=== PATIENT | male | born 1990 | race Caucasian/White ===

== ENCOUNTER 2017-05-11 10:04 | Emergency (ER) | payer OTHER, BC ==
--- NOTE | 2017-05-11 10:19 | ER Document Report ---
ED General - General Stated Complaint: RIGHT KNEE INJURY Time Seen by Provider: 05/11/17 10:10 Information source: Patient Notes: 27-year-old male who is doing a please obstacle course today when he was going over a fence and states that his right knee patella "shifted" laterally. He states he was able to "put it back in". He states when he attempted to stand he felt lightheaded and passed out. He denies any headache, neck pain, chest pain, palpitations, and currently is back at baseline. He denies any recent trips or travel, prior calf pain or leg swelling. He denies a history of syncope in the past. - HPI Onset: Just prior to arrival Onset/Duration: Sudden Quality of pain: Achy Severity: Mild Pain Level: 1 Associated symptoms: Other - See above Exacerbated by: Movement, Walking Relieved by: Denies Similar symptoms previously: No Recently seen / treated by doctor: No - Related Data Allergies/Adverse Reactions: No Known Allergies Allergy (Verified 05/11/17 10:34) Past Medical History - General Information source: Patient - Social History Smoking Status: Unknown if Ever Smoked Cigarette use (# per day): No Chew tobacco use (# tins/day): No Smoking Education Provided: No Frequency of alcohol use: None Family History: Reviewed & Not Pertinent Review of Systems - Review of Systems Cardiovascular: denies: Chest pain, Palpitations, Heart racing, Edema Respiratory: denies: Cough, Hurts to breathe, Short of breath Gastrointestinal: denies: Abdominal pain Musculoskeletal: denies: Back pain Skin: denies: Rash Hematologic/Lymphatic: denies: Anemia Neurological/Psychological: denies: Confusion, Loss of power -: Yes All other systems reviewed and negative Physical Exam - Vital signs Vitals: Temp Pulse Resp BP Pulse Ox 98.8 F 78 16 132/67 H 97 05/11/17 10:05 05/11/17 10:05 05/11/17 10:05 05/11/17 10:05 05/11/17 10:05 Notes: Reviewed vital signs and nursing note as charted by RN. CONSTITUTIONAL: Alert and oriented and responds appropriately to questions. Well -appearing; well-nourished HEAD: Normocephalic; atraumatic EYES: PERRL NECK: Supple without meningismus; non-tender CARD: Regular rate and rhythm; no murmurs RESP: Normal chest excursion without splinting or tachypnea; breath sounds clear and equal bilaterally ABD/GI: Normal bowel sounds; non-distended; soft, non-tender BACK: The back appears normal and is non-tender to palpation EXT: Patient actually has excellent range of motion of all 4 extremities including almost complete flexion to the right knee. No obvious deformity or swelling noted. Excellent distal dorsalis pedis pulses, posterior tibialis pulses, capillary refill, and sensation SKIN: No acute lesions noted NEURO: Moves all extremities equally; Motor and sensory function intact PSYCH: The patient's mood and manner are appropriate. Grooming and personal hygiene are appropriate. Course - Re-evaluation Re-evalutation: 05/11/17 10:18 Given the history and physical examination which sounds much like a patellar dislocation/relocation, I will attempt to perform an x-ray of the right knee as well as an EKG given the syncopal-like episode. I do not believe any blood work is necessary at this time. Given the history and examination, I believe acute knee dislocation with possible arterial injury to be very low probability at this time. 05/11/17 10:26 EKG shows heart of 71, normal sinus rhythm, normal axis, no obvious ST elevation or depression. Narrow QRS. 05/11/17 11:01 X-ray on my preliminary read of the knee shows no obvious fractures patella dislocations. No change in neurologic exam. Patient will be discharged home with strict return precautions, crutches, knee immobilizer, and follow-up with orthopedics. Strict return precautions have been explained. - Vital Signs Vital signs: Temp Pulse Resp BP Pulse Ox 98.8 F 78 16 132/67 H 97 05/11/17 10:05 05/11/17 10:05 05/11/17 10:05 05/11/17 10:05 05/11/17 10:05 Discharge - Discharge Clinical Impression: Closed dislocation of right patella Qualifiers: Encounter type: initial encounter Qualified Code(s): S83.004A - Unspecified dislocation of right patella, initial encounter Condition: Good Disposition: HOME, SELF-CARE Additional Instructions: Come back immediately for any increased pain, swelling, weakness or numbness, or any other acute problems. Please make sure that she rest ice and elevate your knee when nonambulatory. Please make sure that she do the range of motion exercises as we have discussed daily. Follow-up with orthopedics. Referrals: GEETA MCDONALD MD [ACTIVE STAFF] - Follow up as needed
--- NOTE | 2017-05-11 11:12 | RADIOLOGY REPORT (SQ) ---
EXAM DESCRIPTION: KNEE RIGHT 4 VIEWS COMPLETED DATE/TIME: 05/11/2017 10:35 am REASON FOR STUDY: 19; probable patellar dislocation and relocation COMPARISON: None. NUMBER OF VIEWS: Four views. TECHNIQUE: AP, lateral, and both oblique radiographic images acquired of the right knee. LIMITATIONS: None. FINDINGS: MINERALIZATION: Normal. BONES: No acute fracture or dislocation. No worrisome bone lesions. JOINT: A small joint effusion is present SOFT TISSUES: No soft tissue swelling. No radio-opaque foreign body. OTHER: No other significant finding. IMPRESSION: Small joint effusion, otherwise unremarkable exam. TECHNICAL DOCUMENTATION: JOB ID: [id number] [employer]- All Rights Reserved Reading location - IP/workstation name: [email or web address]
[2017-05-11 11:51] VITALS: BP 113/45
--- NOTE | 2017-05-11 17:27 | EKG REPORT ---
SEVERITY:- NORMAL ECG - SINUS RHYTHM : Confirmed by: Mani Hewitt MD 11-May-2017 17:26:16
== END 2017-05-11 11:49 | disposition home or self-care (01) ==
LOC: ER 10:04
DX: S83.004A Unspecified dislocation of right patella, initial encounter (principal); X58.XXXA Exposure to other specified factors, initial encounter; R55 Syncope and collapse
CPT/HCPCS: 93005; 99284; 73564; 93010; L1830

== ENCOUNTER 2018-11-04 19:04 | Emergency (ER) | payer OTHER, BC ==
--- NOTE | 2018-11-04 20:02 | EKG REPORT ---
SEVERITY:- NORMAL ECG - SINUS RHYTHM : Confirmed by: Salma Salcedo MD 04-Nov-2018 20:02:07
--- NOTE | 2018-11-04 20:06 | ER Document Report ---
ED Syncope and Near Syncope - General Chief Complaint: Fainting Stated Complaint: SYNCOPE Time Seen by Provider: 11/04/18 19:14 Mode of Arrival: Wheelchair Information source: Patient - HPI Notes: Patient is brought in a wheelchair to room to. Patient was standing outside of a family members room when he leaned over a desk and passed out. Patient was immediately aroused with a sternal rub in the wheelchair when he got into the room. Immediately woke up and said "I am fine". He states that he felt lightheaded because he has been hot and not drinking all day. He states she is also concerned about his family member. He states he has passed out before when he become overheated. He also states his been standing for long time with his legs locked outside of the patient's room. He denies any recent chest pain or shortness of breath. He denies any dizziness or lightheadedness. Says he has had no recent colds. Symptoms lasted approximately 1 to 2 minutes. They were severe. They consisted of the patient being unconscious and unarousable. They were made better with a sternal rub and reclining. They were worse obviously when he was standing. There is no radiation symptoms. - Related Data Allergies/Adverse Reactions: No Known Allergies Allergy (Verified 05/11/17 10:34) Past Medical History - General Information source: Patient - Social History Smoking Status: Never Smoker Frequency of alcohol use: None Drug Abuse: None Family History: Reviewed & Not Pertinent Renal/ Medical History: Denies: Hx Peritoneal Dialysis Review of Systems - Review of Systems Constitutional: denies: Chills, Fever Cardiovascular: denies: Chest pain, Palpitations Respiratory: denies: Cough, Short of breath -: Yes All other systems reviewed and negative Physical Exam - Vital signs Interpretation: Normal - General General appearance: Unresponsive Notes: Patient was unresponsive on arrival to the room however he was readily arousable with a sternal rub. - HEENT Head: Normocephalic, Atraumatic Eyes: Normal Pupils: PERRL - Respiratory Respiratory status: No respiratory distress Chest status: Nontender Breath sounds: Normal Chest palpation: Normal - Cardiovascular Rhythm: Regular Heart sounds: Normal auscultation Murmur: No - Abdominal Inspection: Normal Distension: No distension Bowel sounds: Normal Tenderness: Nontender Organomegaly: No organomegaly - Back Back: Normal, Nontender - Extremities General upper extremity: Normal inspection, Nontender, Normal color, Normal ROM, Normal temperature General lower extremity: Normal inspection, Nontender, Normal color, Normal ROM, Normal temperature, Normal weight bearing. No: Bernice's sign - Neurological Cognition: Other - Patient unresponsive initially Orientation: Disoriented to person, Disoriented to place, Disoriented to time [place] Coma Scale Eye Opening: Spontaneous [place] Coma Scale Verbal: Oriented [place] Coma Scale Motor: Obeys Commands Lucie Coma Scale Total: 15 Speech: Normal Motor strength normal: LUE, RUE, LLE, RLE Sensory: Normal - Psychological Associated symptoms: Normal affect, Normal mood - Skin Skin Temperature: Warm Skin Moisture: Moist Skin Color: Pale Course - Re-evaluation Re-evalutation: 11/04/18 20:05 After the initial sternal rub patient has been laughing smiling and talking with family for the last hour. He has drank over 3 cups of water. He states that he feels fine and is ready for discharge. EKG is unremarkable. - EKG Interpretation by Me EKG shows normal: Sinus rhythm Rate: Normal - 72 Rhythm: NSR [place]/QRS: No: Right axis deviation, Left axis deviation Discharge - Discharge Clinical Impression: Syncope and collapse Condition: Stable Disposition: HOME, SELF-CARE Instructions: Syncopal Episode ([facility]) Referrals: JAVED TELLO MD [ACTIVE STAFF] - Follow up as needed
[2018-11-04 20:18] VITALS: BP 130/88
== END 2018-11-04 20:22 | disposition home or self-care (01) ==
LOC: ER 19:04
DX: R55 Syncope and collapse (principal)
CPT/HCPCS: 93005; 93010; 99284

== ENCOUNTER 2019-02-22 09:30 | Emergency (ER) | payer BC, OTHER ==
[2019-02-22] MEDS ORDERED: KETOROLAC TROMETHAMINE INJ/PF 30 MG/1 ML SDV IV ONE (10:05)
[2019-02-22] MEDS ORDERED: DEXAMETHASONE SOD PHOS INJ 10 MG/1 ML VIAL IV ONE (10:05)
--- NOTE | 2019-02-22 10:08 | ER Document Report ---
ED Medical Screen (RME) - General Chief Complaint: Sore Throat Stated Complaint: SORE THROAT Time Seen by Provider: 02/22/19 09:55 Notes: Patient is a 29-year-old male who presents emergency department with a chief complaint of sore throat. Patient reports he had a sore throat for about 2 days. Patient denies fever. Patient reports he has been coughing up blood. Patient reports this morning he did look at the back of his throat and noticed that the right side of his throat was significantly swollen and appeared to have a blood clot on it. Patient reports he does still have his tonsils. Patient states he has had no nausea vomiting or diarrhea. Patient reports that it is painful to swallow. Patient last took naproxen yesterday for his discomfort. TRAVEL OUTSIDE OF THE [place] IN LAST 30 DAYS: No - Related Data Allergies/Adverse Reactions: No Known Allergies Allergy (Verified 02/22/19 09:55) Home Medications: naproxen Past Medical History - Social History Chew tobacco use (# tins/day): No Frequency of alcohol use: Heavy Drug Abuse: None Renal/ Medical History: Denies: Hx Peritoneal Dialysis Physical Exam - Vital signs Vitals: Temp Pulse Resp BP Pulse Ox 97.4 F 61 16 137/72 H 98 02/22/19 09:33 02/22/19 09:33 02/22/19 09:33 02/22/19 09:33 02/22/19 09:33 - HEENT Head: Normocephalic Eyes: Normal Conjunctiva: Normal Cornea: Normal Mouth/Lips: Normal Mucous membranes: Normal Notes: Patient does have right tonsillar hypertrophy with what appears to be a blood clot on the external surface of the tonsil. Uvula is slightly deviated to the left. Right tonsil does not touch the uvula. Airway is patent. Patient does have a palpable enlarged right submandibular lymph node. Course - Re-evaluation Re-evalutation: 02/22/19 10:08 I have greeted and performed a rapid initial assessment of this patient. A comprehensive ED assessment and evaluation of the patient, analysis of test results and completion of the medical decision making process will be conducted by additional ED providers. - Vital Signs Vital signs: Temp Pulse Resp BP Pulse Ox 97.4 F 61 16 137/72 H 98 02/22/19 09:55 02/22/19 09:33 02/22/19 09:55 02/22/19 09:33 02/22/19 09:55
[2019-02-22 11:18] LABS: ABSOLUTE EOSINOPHILS # (AUTO) 0.2 10^3/uL (0.0-0.6); ABSOLUTE LYMPHOCYTES (AUTO) 1.5 10^3/uL (0.5-4.7); ABSOLUTE MONOCYTES (AUTO) 0.7 10^3/uL (0.1-1.4); ABSOLUTE NEUT (AUTO) 6.6 10^3/uL (1.7-8.2); BASOPHILS % (AUTO) 0.4 % (0-2); HEMATOCRIT 44.5 % (37.9-51.0); HEMOGLOBIN 15.6 g/dL (13.5-17.0); LYMPHOCYTES % (AUTO) 16.2 % (13-45); MEAN CORPUSCULAR HEMOGLOBIN 32.7 pg (27.0-33.4); MEAN CORPUSCULAR VOLUME 93 fl (80-97); PLATELET COUNT 207 10^3/uL (150-450); RED BLOOD COUNT 4.76 10^6/uL (4.35-5.55); RED CELL DISTRIBUTION WIDTH 12.7 % (11.5-14.0); SEGMENTED NEUTROPHILS % (AUTO) 73.4 % (42-78); TOTAL CELLS COUNTED % (AUTO) 100 %
[2019-02-22 11:25] LABS: ALBUMIN 4.4 g/dL (3.5-5.0); ALKALINE PHOSPHATASE 63 U/L (38-126); ANION GAP 8 (5-19); ASPARTATE AMINO TRANSFERASE 25 U/L (17-59); BILIRUBIN,DIRECT 0.2 mg/dL (0.0-0.4); BILIRUBIN,TOTAL 0.8 mg/dL (0.2-1.3); BLOOD UREA NITROGEN 16 mg/dL (7-20); CALCIUM 9.5 mg/dL (8.4-10.2); CARBON DIOXIDE 27 mmol/L (22-30); CHLORIDE 103 mmol/L (98-107); GLUCOSE 78 mg/dL (75-110); POTASSIUM 4.4 mmol/L (3.6-5.0); TOTAL PROTEIN 7.4 g/dL (6.3-8.2)
--- NOTE | 2019-02-22 11:48 | RADIOLOGY REPORT (SQ) ---
EXAM DESCRIPTION: CT SOFT TISSUE NECK WITH COMPLETED DATE/TIME: 02/22/2019 11:34 am REASON FOR STUDY: right tonsillar swelling COMPARISON: None. TECHNIQUE: Post IV contrasted scanning from skull base through lung apices with review of bone, soft tissue and lung windows. Reconstructed coronal and sagittal MPR images reviewed. All images stored on PACS. All CT scanners at this facility use dose modulation, iterative reconstruction, and/or weight based d osing when appropriate to reduce radiation dose to as low as reasonably achievable (ALARA). [facility]: Dose Right [facility]: CareDose [facility]: Dose Right [facility]: Teradose 4D [facility]: SEC Watch CONTRAST TYPE AND DOSE: contrast/concentration: Isovue 350.00 mg/ml; Total Contrast Delivered: 74.0 ml; Total Saline Delivered: 55.0 ml RENAL FUNCTION: None required. The patient is less than 50 years old. RADIATION DOSE: CT Rad equipment meets quality standard of care and radiation dose reduction techniq ues were employed. CTDIvol: 15.6 mGy. DLP: 457 mGy-cm. . LIMITATIONS: None. FINDINGS: SKULL BASE: Intact. MAJOR SALIVARY GLANDS: No solid or cystic masses. No inflammatory changes. LYMPHADENOPATHY: No adenopathy. MUCOSAL MASSES OR ASYMMETRY: Diffuse swelling in the posterior nasopharynx and tonsillar crypts. No abscess or foreign body. LARYNX/CORDS: No abnormal findings. VASCULAR STRUCTURES: The major vessels are patent. LUNG APICES: Clear. BONES: Intact. THYROID: Normal size. No masses. PARANASAL SINUSES: Clear. OTHER: No other significant finding. IMPRESSION: Tonsillitis. No abscess. TECHNICAL DOCUMENTATION: JOB ID: [id number] Quality ID # [id number]: Final reports with documentation of one or more dose reduction techniques (e.g., Au tomated exposure control, adjustment of the mA and/or kV according to patient size, use of iterative reconstruction technique) 2010 [employer]- All Rights Reserved Reading location - IP/workstation name: [email or web address]
--- NOTE | 2019-02-22 13:12 | ER Document Report ---
ED ENT - General Chief Complaint: Sore Throat Stated Complaint: SORE THROAT Time Seen by Provider: 02/22/19 09:55 Primary Care Provider: GRZEGORZ,RYAN [Primary Care Provider] - Follow up as needed TRAVEL OUTSIDE OF THE [place] IN LAST 30 DAYS: No - HPI Notes: 29-year-old usually healthy male says he has had a sore throat for a few days now. He does not have any difficulty with swallowing or secretions other than some pain with swallowing he says that today in the mirror it looks like his right side of his back of his throat was more swollen than other and that he was coughing up some bright red streaks. He denies any trouble breathing any stridor. No voice change. No masses or swelling in the neck or difficulty moving the neck. No sick contacts. No other travel. Denies any other positive systems on full review of systems - Related Data Allergies/Adverse Reactions: No Known Allergies Allergy (Verified 02/22/19 09:55) Home Medications: naproxen Past Medical History - Social History Smoking Status: Current Every Day Smoker Chew tobacco use (# tins/day): No Frequency of alcohol use: Heavy Drug Abuse: None Family History: Reviewed & Not Pertinent Patient has suicidal ideation: No Patient has homicidal ideation: No Renal/ Medical History: Denies: Hx Peritoneal Dialysis Physical Exam - Vital signs Vitals: Temp Pulse Resp BP Pulse Ox 97.4 F 61 16 137/72 H 98 02/22/19 09:33 02/22/19 09:33 02/22/19 09:33 02/22/19 09:33 02/22/19 09:33 Interpretation: Normal - General General appearance: Alert, Other - Nontoxic-appearing accompanied by girlfriend looks well In distress: None - HEENT Head: Normocephalic, Atraumatic. No: Ecchymosis Eyes: No: Pale conjunctiva, Periorbital ecchymosis, Periorbital edema, Scleral icterus Conjunctiva: No: Injected Cornea: Normal Extraocular movements intact: Yes Pupils: PERRL Ears: Normal External canal: Normal Tympanic membrane: Normal Mouth/Lips: Normal, Other - No evidence of petechiae or other lesions or friable mucosa in the oropharynx. Pharynx: Other - There is a small 1/4 cm and closed hematoma on the anterior medial surface of right tonsil. This tonsil is more swollen than the left which has no evidence of erythema or exudate. There is some mild uvular shift but there is no uvular edema. No stridor no difficulty with secretions no dysphonia. Pharyngeal motion the neck no masses no lymphadenopathy.. No: Peritonsillar abscess, Uvular edema Neck: Normal, Supple. No: Lymphadenopathy, Meningismus, Neck mass, Thyroid nodule, Thyromegally - Respiratory Respiratory status: No respiratory distress. No: Tachypnea Chest status: Nontender. No: Ecchymosis, No pleuritic chest pain, Pain with cough, Prolonged expirations Breath sounds: No: Decreased air movement, Nonproductive cough, Productive cough, Rales, Rhonchi, Stridor, Wheezing Chest palpation: No: Purulent sputum, Subcutaneous emphysema, Tender, Ecchymosis - Cardiovascular Rhythm: Regular Heart sounds: Normal auscultation Murmur: No - Abdominal Inspection: Normal Distension: No distension Bowel sounds: Normal Tenderness: Nontender Organomegaly: No organomegaly - Back Back: Normal, Nontender - Extremities General upper extremity: Normal inspection, Nontender, Normal color, Normal ROM, Normal temperature General lower extremity: Normal inspection, Nontender, Normal color, Normal ROM, Normal temperature, Normal weight bearing. No: Bernice's sign - Neurological Neuro grossly intact: Yes Cognition: Normal Orientation: AAOx4 [place] Coma Scale Eye Opening: Spontaneous [place] Coma Scale Verbal: Oriented Lucie Coma Scale Motor: Obeys Commands [place] Coma Scale Total: 15 Speech: Normal Motor strength normal: LUE, RUE, LLE, RLE Sensory: Normal - Psychological Associated symptoms: Normal affect, Normal mood - Skin Skin Temperature: Warm Skin Moisture: Dry Skin Color: Normal Course - Re-evaluation Re-evalutation: 02/22/19 13:15 . Initial and repeat vital signs have remained within normal limits, and continue no evidence of airway compromise in any way. - Vital Signs Vital signs: Temp Pulse Resp BP Pulse Ox 97.4 F 61 16 137/72 H 98 02/22/19 09:55 02/22/19 09:33 02/22/19 09:55 02/22/19 09:33 02/22/19 09:55 - Laboratory Result Diagrams: 02/22/19 10:35 02/22/19 10:35 Laboratory results interpreted by me: strep rapid (-) soft tissue neck iv contrast: +tonsillitis w/o abscess Discharge - Discharge Clinical Impression: Tonsillar bleed, Hematoma Condition: Good Disposition: HOME, SELF-CARE Additional Instructions: Today I reviewed your CT scan of the neck and discussed it with the radiologist there is no signs of an infection in the tonsil behind the blood clot that we can see. We checked your labs including your blood count and your platelets and then your clotting factors to ensure you do have any reason for bleeding risks. Otherwise I think this is just from coughing violently and since you are not continuing to have significant coughing and it is a contained small hematoma I think it will resorb on its own and your body is obviously able to clot and resorb that given the fact that you have not had continue bleeding. If you do start have fevers or trouble swallowing or controlling your secretions of saliva or any muffled voice or change in voice or pain with neck movement or jaw movement then please return. Otherwise I think this is a viral pharyngitis and then a small tonsil bleed and now clot. If this is not resolved in the next few days and if it is gotten worse for sure then I do want you to be seen again you can see your primary care doctor but I have also given you the number for an ENT doctor as well. Your primary care doctor can suggest or refer you to an ENT also if needed. Referrals: [facility] [Primary Care Provider] - Follow up as needed
[2019-02-22 14:13] LABS: INTERNATIONAL RATION (INR) 1.03; PROTHROMBIN TIME 13.6 SEC (11.4-15.4)
[2019-02-22 14:14] LABS: PARTIAL THROMBOPLASTIN TIME 38.5 SEC (23.5-35.8)
[2019-02-22 15:48] VITALS: BP 143/72
== END 2019-02-22 15:47 | disposition home or self-care (01) ==
LOC: ER 09:30
DX: M79.81 Nontraumatic hematoma of soft tissue (principal); J02.9 Acute pharyngitis, unspecified; R04.2 Hemoptysis; F17.200 Nicotine dependence, unspecified, uncomplicated
CPT/HCPCS: 99283; 96374; 96375; 36415; 87070; 87880; 85025; 85610; 85730; 80053; 70491; J1885; J1100